=== PATIENT | female | born 1980 | race Caucasian/White ===

== ENCOUNTER 2018-11-05 11:40 | Emergency (ER) | payer BC, SELFPAY ==
[2018-11-05 11:41] VITALS: BP 148/74; PULSE 86; RESP 16; TEMP 37.1; O2SAT 100; BMI 19.2
--- NOTE | 2018-11-05 12:07 | ED.DCSUM_ITS ---
- ER Visit Summary Date of Service: 11/05/18 Chief Complaint: Dental pain History of Present Illness: The patient is a 37 F who had her lower teeth extracted this past week. She just finished in a bad experience to the last Brantwood early yesterday morning. She is complaining of ongoing continued pain. She did take ibuprofen 600 mg this morning. Physical Examination: Vital signs unremarkable. Patient lying in bed no acute distress. Head neck examination was no facial edema or erythema. She does have some mild bruising noted along the left jaw. Intraoral examination reveals lower gums to have sutures in place. There is expected postop edema. There is no drainage or sign of infection at this time. Some mental space is soft with no sign of Corby's angina. Posterior pharynx exam is normal. Test Results: [] Emergency Department Course and Treatment: I did do an oars report. Patient was given 9 tabs of Brantwood on the and 9 tabs of Brantwood on the . She will get a prescription for Brantwood. She is an appointment with her dentist in 2 days. At this time I do not see sign of infection and will not write an antibiotic at this time. Treatment Plan: [] Disposition: Discharge Impression: Postop pain status post dental surgery This note was generated with Vigme dictation software. It may contain incorrect words, spelling, and punctuation that were not noted in review of the chart prior to signing ED Disposition - Plan for ED Patient: Disposition: Home or Assisted Living Instructions: ED Tooth Pain, ED Post Op Pain Prescriptions: Hydrocodone Bitart/Apap 5-325 [Brantwood 5MG-325MG] 1 tablet PO Q6H PRN PRN 3 Days #10 tablet PRN Reason: Pain Referrals: [facility] Doctor,Out of [Primary Care Provider] - Additional Instructions: Follow-up with your dentist on Tuesday as scheduled.
[2018-11-05] MEDS: HYDROcodone Bitartrate/Apap 5/325 Tablet PO (12:19)
[2018-11-05 12:22] VITALS: BP 135/77; PULSE 62; RESP 15; O2SAT 99
== END 2018-11-05 12:23 | disposition home or self-care (01) ==
LOC: ED 12:15
PROVIDERS: Emergency Provider Emergency Medicine
DX: K08.89 Other specified disorders of teeth and supporting structures (principal); Z98.818 Other dental procedure status; Z72.0 Tobacco use; Z79.899 Other long term (current) drug therapy
CPT/HCPCS: 99282

== ENCOUNTER → 2024-05-09 | Outpatient (CLI) | payer BC, SELFPAY ==
[2024-05-09 17:12] LABS: ALB/GLOB Ratio 1.4 RATIO (0.9-2.4); AST(SGOT) 20 U/L (15-37); Alanine Aminotransfer ALT/SGPT 21 U/L (13-56); Albumin, Serum 4.2 g/dL (3.2-5.0); Alkaline Phosphatase 98 U/L (45-117); Anion Gap 5 (5-15); BUN 11 mg/dL (7-18); BUN/Creat Ratio 13.7 RATIO (10-20); Calcium,Total 8.7 mg/dL (8.5-10.1); Chloride 101 mmol/L (98-107); EST Glomerular Filtration Rate 83 mL/min (>60); Est Glom Filt Rate - Afr Amer 101 mL/min (>60); Globulin 2.9 g/dL (2.2-4.2); Glucose 97 mg/dL (74-106); Protein, Total 7.1 g/dL (6.4-8.2); Sodium Level 137 mmol/L (136-145)
== END | disposition home or self-care (01) ==
LOC: BIMLAB 15:01
PROVIDERS: PCP Family Medicine; Referring Provider Family Medicine; Visit Provider Family Medicine
DX: R73.03 Prediabetes (principal)
CPT/HCPCS: 36415; 80053

== ENCOUNTER → 2024-06-13 | Outpatient (CLI) | payer BC, SELFPAY ==
--- NOTE | 2024-06-13 | IMM_PTH ---
PATIENT: GAYATRI MENDEZ LOC: FE U#:[id number] AGE/SX: 43/F ROOM: RE06/13/[address]: Dr. Jerel Hoyt DO : 1980 BED: DIS: 06/13/2024 SPEC #: [id number] RECD: 06/15/24 11:08 STATUS: ANDRA RERajiv #: [id number] K[place]: 06/13/24 00:[address]: Jerel Hoyt DEPT: IMMUNOHISTOCHEMISTRY RECD BY: Gerardo Taylor Tissues: Skin of arm Procedures: Pankeratin (add) MELAN-A (initial) CD68 (ADD) S-100 (add) PHYSICIAN & INSTITUTION [place] [id number] SPECIMEN INFORMATION: Tissue Source: Left arm Clinical Info: Suspicious lesion Specimen Number: [id number] CPT code: 33078,56533w3 METHODOLOGY: Deparaffinized sections of prefer/formalin-fixed tissue or PAP/DQ stained slides are incubated with monoclonal/polyclonal antibodies/oligonucleotide probes. Localization is made via biotin free immunoperoxidase method. Appropriate controls are performed and reacted as expected. Results on target cell population are indicated in the following table: RESULTS: ANTIBODY / CLONE RESULT Melan A (A103) positive S-100 (4C4.9) positive CD68 (KP-1) positive AE1-3 (AE1/AE3/PCK26) negative These tests were developed and their performance characteristics determined by [facility]. They may not have been cleared or approved by the [place]. Food and Drug Administration. The FDA has determined that such clearance or approval is not necessary. The above immunohistochemical/dualISH markers are ordered and reviewed by the Pathologist. INTERPRETATION: Left arm, punch biopsy: Consistent with blue nevus. 06/18/2024
--- NOTE | 2024-06-13 16:00 | LES_PTH ---
PATIENT: GAYATRI MENDEZ LOC: FE U#:[id number] AGE/SX: 43/F ROOM: RE06/13/[address]: Dr. Jerel Hoyt, : 1980 BED: DIS: 06/13/2024 SPEC #: [id number] RECD: 06/13/24 16:26 STATUS: ANDRA ALLEN #: [id number] [place]: 06/13/24 16:[address]: Jerel Hoyt DEPT: SURGICAL PATHOLOGY RECD BY: Kojo Rios Tissues: Skin of arm Procedures: Surgery Specimen Level IV HEADER OPERATION: Punch biopsy PRE-OP DIAGNOSIS: Suspicious lesion TISSUE SUBMITTED: Left arm MICROSCOPIC DIAGNOSIS Skin lesion of left arm, biopsy: Consistent with blue nevus. See comment. [place] 06/15/2024 COMMENT Immunohistochemistry ([id number]) supports the above diagnosis. MICROSCOPIC DESCRIPTION Slides are reviewed. GROSS DESCRIPTION Received is one container labeled with the patient's name and not further designated. The specimen consists of an irregular fragment of dark-guzman soft tissue measuring 0.1 x 0.1 x <0.1cm. The specimen is totally submitted in one cassette. 06/14/2024 TC:5 CPT:17866
== END | disposition home or self-care (01) ==
PROVIDERS: PCP Family Medicine; Referring Provider Family Medicine; Visit Provider Family Medicine
DX: D23.62 Other benign neoplasm of skin of left upper limb, including shoulder (principal)
CPT/HCPCS: 88305; 88341; 88342